=== PATIENT | male | born 1940 | race African-American/Black ===

== ENCOUNTER 2019-01-26 09:05 | Emergency (ER) | payer MEDICARE ==
[~2019-01-26] VITALS: Ht 185.4 cm; Wt 63.0 kg
--- OUTSIDE RECORDS SUMMARY | 2019-01-26 09:08 | XMS REPORT ---
[facility] Address Unknown Phone Unavailable Care Team Providers Care Tree Feller Name Role Phone DRU GU Unavailable Unavailable Payers Payer Name Policy Type Policy Number Effective Date Expiration Date Problems This patient has no known problems. Allergies, Adverse Reactions, Alerts Allergy Name Allergy Type Status Severity Reaction(s) Onset Date Inactive Date Treating Clinician Comments No Known Allergies DA Active U 2018-05-28 00:00:00 No Known Allergies DA Active U 2018-03-15 00:00:00 No Known Allergies DA Active U 2017-07-11 00:00:00 Medications This patient has no known medications. Results Test Description Test Time Test Comments Text Results Atomic Results Result Comments GLUBED 2018-06-03 09:28:00 GLUBED (test code=GLUBED) 246 MG/DL 70-110 Performed by certified fine chemicals operator at [facility] [id number] 08:05:00* Test Item Value Reference Range Comments GLUBED (test code=GLUBED) 129 MG/DL 70-110 Performed by certified fine chemicals operator at [facility] [id number] 20:40:00* Test Item Value Reference Range Comments GLUBED (test code=GLUBED) 148 MG/DL 70-110 Performed by certified fine chemicals operator at [facility] [id number] 13:30:00* Test Item Value Reference Range Comments GLUBED (test code=GLUBED) 187 MG/DL 70-110 Performed by certified fine chemicals operator at [facility] - DOP ART SGL LEVEL [id number] 12:53:00 Name: MARU MEDINA [facility] : 1940 Age/S: 77 / M [address] [place] [address] Unit #: [id number] Loc: [place] [address] Phys: Steve,Adoracion TRAINMASTER Acct: [id number] Dis Date: Status: ADM IN PHONE #: [phone] Exam Date: 06/02/2018 1145 FAX #: [phone] Reason: r/o PVD EXAMS: CPT CODE: [id number] DOP ART SGL LEVEL SUNNY [address]9559 PROCEDURE: BILATERAL LOWER EXTREMITY ARTERIAL DOPPLER INDICATION: 77-year-old male with peripheral vascular disease COMPARISON: None. TECHNIQUE: Duplex imaging of the bilateral lower extremity arteries was performed. FINDINGS: RIGHT: PRESSURES: BRACHIAL: 124 POSTERIOR TIBIAL: 152 DORSALIS PEDIS: 133 AKSHAT: 1.23 Triphasic waveforms in the common femoral, femoral, popliteal, posterior tibial and dorsalis pedis arteries. LEFT: PRESSURES: BRACHIAL: Not obtained due to left arm in sling POSTERIOR TIBIAL: 155 DORSALIS PEDIS: 132 AKSHAT: 1.25 Triphasic waveforms in the common femoral, femoral, popliteal, and posterior tibial arteries. Monophasic waveform in the dorsalis pedis artery. IMPRESSION: 1. Normal bilateral ABIs. 2. Monophasic waveform in the left dorsalis pedis artery suggestive of distal disease. SL: [id number] at 1253 Reported and signed by: Shagufta Talbert M.D. PAGE 1 Signed Report (CONTINUED) Name: MARU MEDINA [facility] : 1940 Age/S: 77 / M [address] [place] [address] Unit #: [id number] Loc: [place] [address] Phys: Steve,Adoracion TRAINMASTER Acct: [id number] Dis Date: Status: ADM IN PHONE #: [phone] Exam Date: 06/02/2018 1145 FAX #: [phone] Reason: r/o PVD EXAMS: CPT CODE: [id number] DOP ART SGL LEVEL SUNNY 29660 <Continued> CC: Noah Forman MD; Bakari Wilson NP Technologist: Kavita Harrison RDMS(BR)(AB) Trnmab Date/Time: 06/02/2018 (1251) [email or web address] Orig Print D/T: S: 06/02/2018 (1255) Probe: PAGE 2 Signed Report [id number] 09:59:00* Test Item Value Reference Range Comments GLUBED (test code=GLUBED) 155 MG/DL 70-110 Performed by certified fine chemicals operator at [facility] BASIC METABOLIC [id number] 07:44:00* Test Item Value Reference Range Comments SODIUM (test code=NA) 143 mEq/L 134-147 POTASSIUM (test code=K) 3.6 mEq/L 3.4-5.0 CHLORIDE (test code=CL) 112 mEq/L 100-108 CARBON DIOXIDE (test code=CO2) 24 mEq/L 21-33 ANION GAP (test code=GAP) 11 0-20 GLUCOSE (test code=GLU) 133 mg/dL 70-110 BLOOD UREA NITROGEN (test code=BUN) 18 mg/dL 7-18 GLOMERULAR FILTRATION RATE (test code=GFR) 59.5 70-80 Units of measure=ml/min/1.73 m2 CREATININE (test code=CREAT) 1.4 mg/dL 0.6-1.3 CALCIUM (test code=CA) 8.7 mg/dL 8.0-10.5 CBC W/AUTO [id number] 07:28:00* Test Item Value Reference Range Comments WHITE BLOOD CELL (test code=WBC) 9.29 x10 3/uL 4.5-11.0 RED BLOOD CELL (test code=RBC) 3.76 x10 6/uL 4.00-5.60 HEMOGLOBIN (test code=HGB) 11.1 g/dL 12.5-16.9 HEMATOCRIT (test code=HCT) 33.9 % 37.5-50.7 MEAN CELL VOLUME (test code=MCV) 90.2 fL 81.0-99.0 MEAN CELL HGB (test code=MCH) 29.5 pg 27.0-33.0 MEAN CELL HGB CONCETRATION (test code=MCHC) 32.7 g/dL 33.0-37.0 RED CELL DISTRIBUTION WIDTH CV (test code=RDW) 15.0 % 11.5-14.5 RED CELL DISTRIBUTION WIDTH SD (test code=RDW-SD) 49.4 fL 37.0-54.0 PLATELET COUNT (test code=PLT) 231 x10 3/uL 150-400 MEAN PLATELET VOLUME (test code=MPV) 11.6 fL 7.0-9.0 NEUTROPHIL % (test code=NT%) 54.3 % 56.0-77.0 IMMATURE GRANULOCYTE % (test code=IG%) 0.3 % 0.0-2.0 LYMPHOCYTE % (test code=LY%) 31.8 % 14.0-32.0 MONOCYTE % (test code=MO%) 9.7 % 4.8-9.0 EOSINOPHIL % (test code=EO%) 3.4 % 0.3-3.7 BASOPHIL % (test code=BA%) 0.5 % 0.0-2.0 NUCLEATED RBC % (test code=NRBC%) 0.0 % 0-0 NEUTROPHIL # (test code=NT#) 5.04 x10 3/uL 2.0-7.6 IMMATURE GRANULOCYTE # (test code=IG#) 0.03 x10 3/uL 0.00-0.03 LYMPHOCYTE # (test code=LY#) 2.95 x10 3/uL 1.0-3.8 MONOCYTE # (test code=MO#) 0.90 x10 3/uL 0.1-0.8 EOSINOPHIL # (test code=EO#) 0.32 x10 3/uL 0.0-0.2 BASOPHIL # (test code=BA#) 0.05 x10 3/uL 0.0-0.2 NUCLEATED RBC # (test code=NRBC#) 0.00 x10 3/uL 0.0-0.1 MANUAL DIFF REQUIRED (test code=MDIFF) NO [id number] 20:18:00* Test Item Value Reference Range Comments GLUBED (test code=GLUBED) 230 MG/DL 70-110 Performed by certified fine chemicals operator at [facility] [id number] 20:00:00* Test Item Value Reference Range Comments GLUBED (test code=GLUBED) 202 MG/DL 70-110 Performed by certified fine chemicals operator at [facility] [id number] 12:16:00* Test Item Value Reference Range Comments GLUBED (test code=GLUBED) 185 MG/DL 70-110 Performed by certified fine chemicals operator at [facility] BASIC METABOLIC [id number] 08:10:00* Test Item Value Reference Range Comments SODIUM (test code=NA) 144 mEq/L 134-147 POTASSIUM (test code=K) 3.4 mEq/L 3.4-5.0 CHLORIDE (test code=CL) 114 mEq/L 100-108 CARBON DIOXIDE (test code=CO2) 26 mEq/L 21-33 ANION GAP (test code=GAP) 7 0-20 GLUCOSE (test code=GLU) 102 mg/dL 70-110 BLOOD UREA NITROGEN (test code=BUN) 19 mg/dL 7-18 GLOMERULAR FILTRATION RATE (test code=GFR) 59.5 70-80 Units of measure=ml/min/1.73 m2 CREATININE (test code=CREAT) 1.4 mg/dL 0.6-1.3 CALCIUM (test code=CA) 8.1 mg/dL 8.0-10.5 CBC W/AUTO [id number] 07:40:00* Test Item Value Reference Range Comments WHITE BLOOD CELL (test code=WBC) 8.24 x10 3/uL 4.5-11.0 RED BLOOD CELL (test code=RBC) 3.32 x10 6/uL 4.00-5.60 HEMOGLOBIN (test code=HGB) 9.8 g/dL 12.5-16.9 HEMATOCRIT (test code=HCT) 30.9 % 37.5-50.7 MEAN CELL VOLUME (test code=MCV) 93.1 fL 81.0-99.0 MEAN CELL HGB (test code=MCH) 29.5 pg 27.0-33.0 MEAN CELL HGB CONCETRATION (test code=MCHC) 31.7 g/dL 33.0-37.0 RED CELL DISTRIBUTION WIDTH CV (test code=RDW) 15.3 % 11.5-14.5 RED CELL DISTRIBUTION WIDTH SD (test code=RDW-SD) 52.0 fL 37.0-54.0 PLATELET COUNT (test code=PLT) 193 x10 3/uL 150-400 MEAN PLATELET VOLUME (test code=MPV) 11.0 fL 7.0-9.0 NEUTROPHIL % (test code=NT%) 56.1 % 56.0-77.0 IMMATURE GRANULOCYTE % (test code=IG%) 0.2 % 0.0-2.0 LYMPHOCYTE % (test code=LY%) 28.6 % 14.0-32.0 MONOCYTE % (test code=MO%) 10.1 % 4.8-9.0 EOSINOPHIL % (test code=EO%) 4.5 % 0.3-3.7 BASOPHIL % (test code=BA%) 0.5 % 0.0-2.0 NUCLEATED RBC % (test code=NRBC%) 0.0 % 0-0 NEUTROPHIL # (test code=NT#) 4.62 x10 3/uL 2.0-7.6 IMMATURE GRANULOCYTE # (test code=IG#) 0.02 x10 3/uL 0.00-0.03 LYMPHOCYTE # (test code=LY#) 2.36 x10 3/uL 1.0-3.8 MONOCYTE # (test code=MO#) 0.83 x10 3/uL 0.1-0.8 EOSINOPHIL # (test code=EO#) 0.37 x10 3/uL 0.0-0.2 BASOPHIL # (test code=BA#) 0.04 x10 3/uL 0.0-0.2 NUCLEATED RBC # (test code=NRBC#) 0.00 x10 3/uL 0.0-0.1 MANUAL DIFF REQUIRED (test code=MDIFF) NO [id number] 07:30:00* Test Item Value Reference Range Comments GLUBED (test code=GLUBED) 93 MG/DL 70-110 Performed by certified fine chemicals operator at [facility] [id number] 21:53:00* Test Item Value Reference Range Comments GLUBED (test code=GLUBED) 224 MG/DL 70-110 Performed by certified fine chemicals operator at [facility] [id number] 15:52:00* Test Item Value Reference Range Comments GLUBED (test code=GLUBED) 173 MG/DL 70-110 Performed by certified fine chemicals operator at [facility] [id number] 12:05:00* Test Item Value Reference Range Comments GLUBED (test code=GLUBED) 229 MG/DL 70-110 Performed by certified fine chemicals operator at [facility] CBC W/AUTO [id number] 09:45:00* Test Item Value Reference Range Comments WHITE BLOOD CELL (test code=WBC) 8.36 x10 3/uL 4.5-11.0 RED BLOOD CELL (test code=RBC) 3.41 x10 6/uL 4.00-5.60 HEMOGLOBIN (test code=HGB) 10.1 g/dL 12.5-16.9 HEMATOCRIT (test code=HCT) 30.9 % 37.5-50.7 MEAN CELL VOLUME (test code=MCV) 90.6 fL 81.0-99.0 MEAN CELL HGB (test code=MCH) 29.6 pg 27.0-33.0 MEAN CELL HGB CONCETRATION (test code=MCHC) 32.7 g/dL 33.0-37.0 RED CELL DISTRIBUTION WIDTH CV (test code=RDW) 15.1 % 11.5-14.5 RED CELL DISTRIBUTION WIDTH SD (test code=RDW-SD) 50.8 fL 37.0-54.0 PLATELET COUNT (test code=PLT) 216 x10 3/uL 150-400 MEAN PLATELET VOLUME (test code=MPV) 11.4 fL 7.0-9.0 NEUTROPHIL % (test code=NT%) 54.6 % 56.0-77.0 IMMATURE GRANULOCYTE % (test code=IG%) 0.2 % 0.0-2.0 LYMPHOCYTE % (test code=LY%) 29.8 % 14.0-32.0 MONOCYTE % (test code=MO%) 9.9 % 4.8-9.0 EOSINOPHIL % (test code=EO%) 5.0 % 0.3-3.7 BASOPHIL % (test code=BA%) 0.5 % 0.0-2.0 NUCLEATED RBC % (test code=NRBC%) 0.0 % 0-0 NEUTROPHIL # (test code=NT#) 4.56 x10 3/uL 2.0-7.6 IMMATURE GRANULOCYTE # (test code=IG#) 0.02 x10 3/uL 0.00-0.03 LYMPHOCYTE # (test code=LY#) 2.49 x10 3/uL 1.0-3.8 MONOCYTE # (test code=MO#) 0.83 x10 3/uL 0.1-0.8 EOSINOPHIL # (test code=EO#) 0.42 x10 3/uL 0.0-0.2 BASOPHIL # (test code=BA#) 0.04 x10 3/uL 0.0-0.2 NUCLEATED RBC # (test code=NRBC#) 0.00 x10 3/uL 0.0-0.1 MANUAL DIFF REQUIRED (test code=MDIFF) NO BASIC METABOLIC [id number] 08:44:00* Test Item Value Reference Range Comments SODIUM (test code=NA) 146 mEq/L 134-147 POTASSIUM (test code=K) 3.6 mEq/L 3.4-5.0 CHLORIDE (test code=CL) 114 mEq/L 100-108 CARBON DIOXIDE (test code=CO2) 28 mEq/L 21-33 ANION GAP (test code=GAP) 8 0-20 GLUCOSE (test code=GLU) 105 mg/dL 70-110 BLOOD UREA NITROGEN (test code=BUN) 20 mg/dL 7-18 GLOMERULAR FILTRATION RATE (test code=GFR) 54.9 70-80 Units of measure=ml/min/1.73 m2 CREATININE (test code=CREAT) 1.5 mg/dL 0.6-1.3 CALCIUM (test code=CA) 8.1 mg/dL 8.0-10.5 [id number] 07:45:00* Test Item Value Reference Range Comments GLUBED (test code=GLUBED) 105 MG/DL 70-110 Performed by certified fine chemicals operator at [facility] [id number] 20:13:00* Test Item Value Reference Range Comments GLUBED (test code=GLUBED) 202 MG/DL 70-110 Performed by certified fine chemicals operator at [facility] [id number] 17:20:00* Test Item Value Reference Range Comments GLUBED (test code=GLUBED) 184 MG/DL 70-110 Performed by certified fine chemicals operator at [facility] [id number] 12:20:00* Test Item Value Reference Range Comments GLUBED (test code=GLUBED) 220 MG/DL 70-110 Performed by certified fine chemicals operator at [facility] [id number] 11:08:00* Test Item Value Reference Range Comments GLUBED (test code=GLUBED) 69 MG/DL 70-110 Performed by certified fine chemicals operator at [facility] BASIC METABOLIC [id number] 08:19:00* Test Item Value Reference Range Comments SODIUM (test code=NA) 146 mEq/L 134-147 POTASSIUM (test code=K) 3.6 mEq/L 3.4-5.0 CHLORIDE (test code=CL) 112 mEq/L 100-108 CARBON DIOXIDE (test code=CO2) 28 mEq/L 21-33 ANION GAP (test code=GAP) 10 0-20 GLUCOSE (test code=GLU) 60 mg/dL 70-110 BLOOD UREA NITROGEN (test code=BUN) 28 mg/dL 7-18 GLOMERULAR FILTRATION RATE (test code=GFR) 47.5 70-80 Units of measure=ml/min/1.73 m2 CREATININE (test code=CREAT) 1.7 mg/dL 0.6-1.3 CALCIUM (test code=CA) 8.0 mg/dL 8.0-10.5 CBC W/AUTO [id number] 07:48:00* Test Item Value Reference Range Comments WHITE BLOOD CELL (test code=WBC) 8.43 x10 3/uL 4.5-11.0 RED BLOOD CELL (test code=RBC) 3.44 x10 6/uL 4.00-5.60 HEMOGLOBIN (test code=HGB) 10.3 g/dL 12.5-16.9 HEMATOCRIT (test code=HCT) 31.7 % 37.5-50.7 MEAN CELL VOLUME (test code=MCV) 92.2 fL 81.0-99.0 MEAN CELL HGB (test code=MCH) 29.9 pg 27.0-33.0 MEAN CELL HGB CONCETRATION (test code=MCHC) 32.5 g/dL 33.0-37.0 RED CELL DISTRIBUTION WIDTH CV (test code=RDW) 15.2 % 11.5-14.5 RED CELL DISTRIBUTION WIDTH SD (test code=RDW-SD) 51.4 fL 37.0-54.0 PLATELET COUNT (test code=PLT) 206 x10 3/uL 150-400 MEAN PLATELET VOLUME (test code=MPV) 11.5 fL 7.0-9.0 NEUTROPHIL % (test code=NT%) 56.4 % 56.0-77.0 IMMATURE GRANULOCYTE % (test code=IG%) 0.1 % 0.0-2.0 LYMPHOCYTE % (test code=LY%) 29.1 % 14.0-32.0 MONOCYTE % (test code=MO%) 9.7 % 4.8-9.0 EOSINOPHIL % (test code=EO%) 4.2 % 0.3-3.7 BASOPHIL % (test code=BA%) 0.5 % 0.0-2.0 NUCLEATED RBC % (test code=NRBC%) 0.0 % 0-0 NEUTROPHIL # (test code=NT#) 4.76 x10 3/uL 2.0-7.6 IMMATURE GRANULOCYTE # (test code=IG#) 0.01 x10 3/uL 0.00-0.03 LYMPHOCYTE # (test code=LY#) 2.45 x10 3/uL 1.0-3.8 MONOCYTE # (test code=MO#) 0.82 x10 3/uL 0.1-0.8 EOSINOPHIL # (test code=EO#) 0.35 x10 3/uL 0.0-0.2 BASOPHIL # (test code=BA#) 0.04 x10 3/uL 0.0-0.2 NUCLEATED RBC # (test code=NRBC#) 0.00 x10 3/uL 0.0-0.1 MANUAL DIFF REQUIRED (test code=MDIFF) NO [id number] 06:30:00* Test Item Value Reference Range Comments GLUBED (test code=GLUBED) 162 MG/DL 70-110 Performed by certified fine chemicals operator at [facility] [id number] 16:58:00* Test Item Value Reference Range Comments GLUBED (test code=GLUBED) 212 MG/DL 70-110 Performed by certified fine chemicals operator at [facility] - US RETRO [id number] 16:38:00 Name: MARU MEDINA [facility] : 1940 Age/S: 77 / M [address] [address] Bl Unit #: [id number] Loc: [place] [address] Phys: Bibiana Clifford MD Acct: [id number] Dis Date: Status: ADM IN PHONE #: [phone] Exam Date: 05/29/2018 1620 FAX #: [phone] Reason: josee EXAMS: CPT CODE: [id number] [facility] [address]2579 Patient: MARU MEDINA. : 1940; Age: 77 years; Gender: Male. MR: [id number]. Ordering physician: Bibiana Clifford MD. PROCEDURE: RENAL ULTRASOUND. INDICATION: Acute kidney injury, elevated BUN/creatinine. COMPARISON: None. TECHNIQUE: Sonographic evaluation of the kidneys and urinary bladder was performed. FINDINGS: KIDNEYS: The right kidney measures 10.2 cm in length. Trace perinephric fluid suspected. Normal contour and parenchymal echogenicity. There is no hydronephrosis, nephrolithiasis, mass lesion or perinephric collection. The left kidney measures 11.1 cm in length. Simple cyst noted in the midportion measuring 1.9 x 1.5 x 1.5 cm. Cyst also noted in the inferior pole measuring 2.1 cm in greatest dimension. Trace perinephric fluid suspected. Normal parenchymal echogenicity. There is no hydronephrosis, nephrolithiasis, mass lesion or perinephric collection. BLADDER: Normal. Prostate measures 5.1 x 4.9 x 4.1 cm. Partially visualized inferior vena cava and abdominal aorta are unremarkable. Aortic bifurcation was not visualized secondary to overlying bowel gas. IMPRESSION: 1. Simple left renal cysts. 2. Trace perinephric fluid suspected bilaterally. SL: CY- H PAGE 1 Signed Report (CONTINUED) Name: MARU MEDINA [facility] : 1940 Age/S: 77 / M [address] [place] [address] Unit #: [id number] Loc: [place] [address] Phys: Bibiana Clifford MD Acct: [id number] Dis Date: Status: ADM IN PHONE #: [phone] Exam Date: 05/29/2018 1620 FAX #: [phone] Reason: josee EXAMS: CPT CODE: [id number] [facility] [address] < Continued> at 1638 Reported and signed by: Tanner Youngblood M.D. CC: Neeraj Early MD; Noah Forman MD; Bibiana Clifford MD Technologist: Jennifer Dominguez RDMS (AB) (OB) Trnscb Date/Time: 05/29/2018 (1638) [id number] Orig Print D/T: S: 05/29/2018 (1642) Probe: PAGE 2 Signed Report [id number] 12:47:00* Test Item Value Reference Range Comments GLUBED (test code=GLUBED) 168 MG/DL 70-110 Performed by certified fine chemicals operator at [facility] BASIC METABOLIC [id number] 08:25:00* Test Item Value Reference Range Comments SODIUM (test code=NA) 143 mEq/L 134-147 POTASSIUM (test code=K) 3.8 mEq/L 3.4-5.0 CHLORIDE (test code=CL) 109 mEq/L 100-108 CARBON DIOXIDE (test code=CO2) 30 mEq/L 21-33 ANION GAP (test code=GAP) 8 0-20 GLUCOSE (test code=GLU) 99 mg/dL 70-110 BLOOD UREA NITROGEN (test code=BUN) 28 mg/dL 7-18 GLOMERULAR FILTRATION RATE (test code=GFR) 44.5 70-80 Units of measure=ml/min/1.73 m2 CREATININE (test code=CREAT) 1.8 mg/dL 0.6-1.3 CALCIUM (test code=CA) 8.1 mg/dL 8.0-10.5 [id number] 08:18:00* Test Item Value Reference Range Comments GLUBED (test code=GLUBED) 74 MG/DL 70-110 Performed by certified fine chemicals operator at [facility] CBC W/AUTO [id number] 07:24:00* Test Item Value Reference Range Comments WHITE BLOOD CELL (test code=WBC) 7.84 x10 3/uL 4.5-11.0 RED BLOOD CELL (test code=RBC) 3.75 x10 6/uL 4.00-5.60 HEMOGLOBIN (test code=HGB) 10.9 g/dL 12.5-16.9 HEMATOCRIT (test code=HCT) 34.2 % 37.5-50.7 MEAN CELL VOLUME (test code=MCV) 91.2 fL 81.0-99.0 MEAN CELL HGB (test code=MCH) 29.1 pg 27.0-33.0 MEAN CELL HGB CONCETRATION (test code=MCHC) 31.9 g/dL 33.0-37.0 RED CELL DISTRIBUTION WIDTH CV (test code=RDW) 15.2 % 11.5-14.5 RED CELL DISTRIBUTION WIDTH SD (test code=RDW-SD) 50.5 fL 37.0-54.0 PLATELET COUNT (test code=PLT) 216 x10 3/uL 150-400 MEAN PLATELET VOLUME (test code=MPV) 11.1 fL 7.0-9.0 NEUTROPHIL % (test code=NT%) 57.0 % 56.0-77.0 IMMATURE GRANULOCYTE % (test code=IG%) 0.3 % 0.0-2.0 LYMPHOCYTE % (test code=LY%) 26.7 % 14.0-32.0 MONOCYTE % (test code=MO%) 10.6 % 4.8-9.0 EOSINOPHIL % (test code=EO%) 4.8 % 0.3-3.7 BASOPHIL % (test code=BA%) 0.6 % 0.0-2.0 NUCLEATED RBC % (test code=NRBC%) 0.0 % 0-0 NEUTROPHIL # (test code=NT#) 4.47 x10 3/uL 2.0-7.6 IMMATURE GRANULOCYTE # (test code=IG#) 0.02 x10 3/uL 0.00-0.03 LYMPHOCYTE # (test code=LY#) 2.09 x10 3/uL 1.0-3.8 MONOCYTE # (test code=MO#) 0.83 x10 3/uL 0.1-0.8 EOSINOPHIL # (test code=EO#) 0.38 x10 3/uL 0.0-0.2 BASOPHIL # (test code=BA#) 0.05 x10 3/uL 0.0-0.2 NUCLEATED RBC # (test code=NRBC#) 0.00 x10 3/uL 0.0-0.1 MANUAL DIFF REQUIRED (test code=MDIFF) NO [id number] 20:36:00* Test Item Value Reference Range Comments GLUBED (test code=GLUBED) 155 MG/DL 70-110 Performed by certified fine chemicals operator at [facility] [id number] 17:05:00* Test Item Value Reference Range Comments GLUBED (test code=GLUBED) 123 MG/DL 70-110 Performed by certified fine chemicals operator at [facility] COMPREHENSIVE METABOLIC [id number] 12:15:00* Test Item Value Reference Range Comments SODIUM (test code=NA) 141 mEq/L 134-147 POTASSIUM (test code=K) 4.4 mEq/L 3.4-5.0 CHLORIDE (test code=CL) 104 mEq/L 100-108 CARBON DIOXIDE (test code=CO2) 34 mEq/L 21-33 ANION GAP (test code=GAP) 7 0-20 GLUCOSE (test code=GLU) 158 mg/dL 70-110 BLOOD UREA NITROGEN (test code=BUN) 26 mg/dL 7-18 GLOMERULAR FILTRATION RATE (test code=GFR) 37.2 70-80 Units of measure=ml/min/1.73 m2 CREATININE (test code=CREAT) 2.1 mg/dL 0.6-1.3 TOTAL PROTEIN (test code=PROT) 7.3 g/dL 6.4-8.2 ALBUMIN (test code=ALB) 3.10 g/dL 3.4-5.0 CALCIUM (test code=CA) 8.3 mg/dL 8.0-10.5 BILIRUBIN TOTAL (test code=BILT) 0.20 mg/dL 0.0-1.0 SGOT/AST (test code=AST) 17 IUnit/L 15-37 SGPT/ALT (test code=ALT) 33 IUnit/L 15-65 ALKALINE PHOSPHATASE TOTAL (test code=ALKP) 69 IUnit/L 20-125 CPK-MB [id number] 12:15:00* Test Item Value Reference Range Comments CREATINE KINASE (CK) (test code=CK) 145 35-232 Result is in INTERNATIONAL UNITS/LITER CKMB (test code=CKMBT) 1.7 ng/mL 0-5.0 CUT OFF:>5 ng/mL is suggested as being consistent with AMI. RELATIVE % INDEX (test code=REL%) 1.1 % 0.0-2.5 *CK-MB INTERPRETATION* NORMAL: <5 ng/ml & <2.5% INDEX ABNORMAL: >5 ng/ml & >2.5% INDEX MENA ZONE: >5 ng/ml & <2.5% INDEX - SUGGEST CPK ISOENZYME BY ELECTROPHORESIS *PLEASE NOTE* A LOW TOTAL CK MAY CALCULATE TO A FALSELY ELEVATED INDEX. COMPREHENSIVE METABOLIC [id number] 12:08:00* Test Item Value Reference Range Comments SODIUM (test code=NA) 141 mEq/L 134-147 POTASSIUM (test code=K) 4.4 mEq/L 3.4-5.0 CHLORIDE (test code=CL) 104 mEq/L 100-108 CARBON DIOXIDE (test code=CO2) 34 mEq/L 21-33 ANION GAP (test code=GAP) 7 0-20 GLUCOSE (test code=GLU) 158 mg/dL 70-110 BLOOD UREA NITROGEN (test code=BUN) 26 mg/dL 7-18 GLOMERULAR FILTRATION RATE (test code=GFR) 37.2 70-80 Units of measure=ml/min/1.73 m2 CREATININE (test code=CREAT) 2.1 mg/dL 0.6-1.3 TOTAL PROTEIN (test code=PROT) g/dL 6.4-8.2 ALBUMIN (test code=ALB) 3.10 g/dL 3.4-5.0 CALCIUM (test code=CA) 8.3 mg/dL 8.0-10.5 BILIRUBIN TOTAL (test code=BILT) mg/dL 0.0-1.0 SGOT/AST (test code=AST) 17 IUnit/L 15-37 SGPT/ALT (test code=ALT) 33 IUnit/L 15-65 ALKALINE PHOSPHATASE TOTAL (test code=ALKP) IUnit/L 20-125 CPK-MB [id number] 12:08:00* Test Item Value Reference Range Comments CREATINE KINASE (CK) (test code=CK) 35-232 CKMB (test code=CKMBT) ng/mL 0-5.0 RELATIVE % INDEX (test code=REL%) % 0.0-2.5 PROTHROMBIN [id number] 12:02:00* Test Item Value Reference Range Comments PROTHROMBIN TIME PATIENT (test code=PTP) 14.7 SECONDS 9.3-12.9 INTERNATIONAL NORMAL RATIO (test code=INR) 1.3 0.8-1.2 TARGET INR BY INDICATION Indication INR1. Prophylaxis of venous thrombosis 2.0 - 3.0 (orthopedic surgery), Prophylaxis of venous thrombosis (other than high-risk surgery), Treatment of Deep Vein Thrombosis/Pulmonary Embolism, Prevention of systemic embolism - Tissue heart valves, Acute Myocardial Infarction (to prevent systemic embolism), Valvular heart disease, Atrial Fibrillation, Bileaflet mechanical valve in aortic position.2. Mechanical prosthetic valves (high risk), 2.5 - 3.5 Presence of Lupus Anticoagulant or Antiphospholipid Antibodies, Prevention of systemic embolism - Acute Myocardial Infarction (to prevent recurrent infarct). THROMBOPLASTIN TIME [id number] 12:02:00* Test Item Value Reference Range Comments THROMBOPLASTIN TIME PARTIAL (test code=PTT) 32.9 Seconds 25.0-39.5 Therapeutic Range: 61.8-83.8 Sec Effective 04/26/2013 CBC W/AUTO [id number] 11:58:00* Test Item Value Reference Range Comments WHITE BLOOD CELL (test code=WBC) 9.64 x10 3/uL 4.5-11.0 RED BLOOD CELL (test code=RBC) 4.07 x10 6/uL 4.00-5.60 HEMOGLOBIN (test code=HGB) 12.0 g/dL 12.5-16.9 HEMATOCRIT (test code=HCT) 37.1 % 37.5-50.7 MEAN CELL VOLUME (test code=MCV) 91.2 fL 81.0-99.0 MEAN CELL HGB (test code=MCH) 29.5 pg 27.0-33.0 MEAN CELL HGB CONCETRATION (test code=MCHC) 32.3 g/dL 33.0-37.0 RED CELL DISTRIBUTION WIDTH CV (test code=RDW) 14.9 % 11.5-14.5 RED CELL DISTRIBUTION WIDTH SD (test code=RDW-SD) 50.4 fL 37.0-54.0 PLATELET COUNT (test code=PLT) 238 x10 3/uL 150-400 MEAN PLATELET VOLUME (test code=MPV) 10.6 fL 7.0-9.0 NEUTROPHIL % (test code=NT%) 68.4 % 56.0-77.0 IMMATURE GRANULOCYTE % (test code=IG%) 0.3 % 0.0-2.0 LYMPHOCYTE % (test code=LY%) 19.3 % 14.0-32.0 MONOCYTE % (test code=MO%) 8.1 % 4.8-9.0 EOSINOPHIL % (test code=EO%) 3.5 % 0.3-3.7 BASOPHIL % (test code=BA%) 0.4 % 0.0-2.0 NUCLEATED RBC % (test code=NRBC%) 0.0 % 0-0 NEUTROPHIL # (test code=NT#) 6.59 x10 3/uL 2.0-7.6 IMMATURE GRANULOCYTE # (test code=IG#) 0.03 x10 3/uL 0.00-0.03 LYMPHOCYTE # (test code=LY#) 1.86 x10 3/uL 1.0-3.8 MONOCYTE # (test code=MO#) 0.78 x10 3/uL 0.1-0.8 EOSINOPHIL # (test code=EO#) 0.34 x10 3/uL 0.0-0.2 BASOPHIL # (test code=BA#) 0.04 x10 3/uL 0.0-0.2 NUCLEATED RBC # (test code=NRBC#) 0.00 x10 3/uL 0.0-0.1 MANUAL DIFF REQUIRED (test code=MDIFF) NO URINALYSIS [id number] 11:56:00* Test Item Value Reference Range Comments UA COLOR (test code=COLU) YELLOW YEL/STRAW UA APPEARANCE (test code=APPU) SL CLOUDY CLEAR UA GLUCOSE DIPSTICK (test code=DGLUU) NEGATIVE NEGATIVE UA BILIRUBIN DIPSTICK (test code=BILU) NEGATIVE NEGATIVE UA KETONE DIPSTICK (test code=KETU) NEGATIVE NEGATIVE UA SPECIFIC GRAVITY (test code=SGU) 1.006 1.005-1.030 UA BLOOD DIPSTICK (test code=MARY CARMEN) 1+ NEGATIVE UA PH DIPSTICK (test code=DORETHA) 5.0 5.0-7.0 UA PROTEIN DIPSTICK (test code=PROU) NEGATIVE NEGATIVE UA UROBILINIOGEN DIPSTICK (test code=URO) 0.2 mg/dL 0.2-1.0 UA NITRITE DIPSTICK (test code=MICK) NEGATIVE NEGATIVE UA LEUKOCYTE ESTERASE DIPSTICK (test code=LEUU) 2+ NEGATIVE UA WBC (test code=WBCU) 21-50 WBC/HPF 0-3 UA RBC (test code=RBCU) 4-10 RBC/HPF 0-3 UA BACTERIA (test code=BACU) 1+ /HPF NONE SEEN UA SQUAMOUS CELLS (test code=SQU) 0-5 /HPF NONE SEEN UA HYALINE CAST (test code=HYALU) 6-10 /LPF NONE SEEN UA MUCUS (test code=MUCU) TRACE /LPF NONE SEEN [id number] 11:41:00* Test Item Value Reference Range Comments GLUBED (test code=GLUBED) 153 MG/DL 70-110 Performed by certified fine chemicals operator at [facility] TROPONIN-I [id number] 11:38:00* Test Item Value Reference Range Comments TROPONIN-I RAPID (test code=TROPIRAP) 0.01 ng/mL 0.00-0.08 [facility] certified fine [facility] Global Task Force with joint leadership from the EuropeanSociety of Cardiology (ESC), the [place] [employer] Foundation (ACCF), the [place] [employer] Association(AHA) and the World Heart Federation (WHF) refined past criteria of myocardial infarction (MT) with a universal definition of myocardial infarction that supports the use of cTnI as a preferred biomarker for myocardial injury. The universal definition of MT, according to this taskforce, is defined as a typical rise and gradual fall ofcardiac biomarkers (preferably troponin) with at least onevalue above the 99th percentile of the upper reference limit (URL) together with evidence of myocardial ischemia with at least one of the following:* ischemic symptoms,* pathological Q waves on electrocardiogram (ECG),* ischemic ECG changes,* or imaging evidence of new loss of viable myocardium or new regional wall motion abnormality. An elevated troponin value alone is not sufficient todiagnose a myocardial infarction. Rather, the patient sclinical presentation (history, physical exam) and ECGshould be used in conjunction with troponin in thediagnostic evaluation of suspected myocardial infarction. Aserial sampling protocol is recommended to facilitate the identification of temporal changes in troponin levels characteristic of MT. - XR CHEST 1 [id number] 09:51:00 FAX: Maria Dolores Segundo DO [place]: St: PRE FAX: Noah Easley MD [phone] Name: MARU MEDINA [facility] : 1940 Age/S: 77/M [address] [place] [address] Unit #: [id number] Loc: MARIAN2 [place] [address] Phys: SegundoMaria Dolores Gely Acct: [id number] Dis Date: Status: PRE ER PHONE #: [phone] Exam Date: 05/28/2018950 FAX #: [phone] Reason: weak EXAMS: CPT CODE: [id number] XR CHEST 1 V 91256 1 VIEW CXR. PORTABLE EXAM 9:41 AM HISTORY: Weakness. COMPARISON: None. Pacemaker device appears well-positioned. The heart is at the upper limits of normal in size. Upper mediastinal contours normal. Lungs clear no pleural abnormality. Bones intact. IMPRESSION: No acute process evident. END OF IMPRESSION SL: [id number] at 0951 Reported and signed by: Cecil Lock M.D. CC: Maria Dolores Segundo DO; Noah Forman MD Technologist: Veronique Blanton, RT(R); Enid Hinton RT(R) Trnscrd Date/Time/By: 05/28/2018 (0951) : By: Gregory Orig Print D/T: S: 05/28/2018 (3654) PAGE 1 Signed Report Stress Test - Treadmill ONLY [place] [address] Patient Name : CARLOTA MEDINA MR #: [id number] : 1940 Age/Sex: 76/M Adm Physician : DRU GU MD Admit Date : Location : [place] Room/Bed : REPORT: Cardiology Report DATE OF Reece YU: February 16, 2017 LEXISCAN NUCLEAR STRESS TEST INDICATION: Ch est pain. DESCRIPTION OF PROCEDURE: After informed consent, the patient wa s brought to the stress lab. He was given 11 mCi of technetium 99 Myoview, a nd myocardial perfusion and SPECT images were obtained in the horizontal long and short axis and vertical long axis. Subsequently, patient was given 0.4 mg of Lexiscan over 10 seconds. The patient was given 32 mCi of technetium 99 Myoview, and myocardial perfusion and SPECT images were obtained in hori zontal long axis and short axis and vertical long axis. Gated images were al so obtained. Patient tolerated the procedure without any complications. REPORT: Baseline EKG shows sinus rhythm at 95 beats per minute, left anteri or fascicular block, interventricular conduction delay, T-wave inversions in V5 and V6. PARAMETERS: Resting heart rate is 69 beats per minute. Maximum heart rate is 95 beats per minute. Resting blood pressure is 129/81 mmHg. Next maximum blood pressure is 130/83 mmHg. REASON FOR TERMINATION: End point attained. INTERPRETATION 1. Negative chest pain. 2. Negative fo r arrhythmias. 3. Blood pressure response consistent with Lexiscan. 4. N o significant ST-T changes seen during Lexiscan infusion compared to baseline . 5. Analysis of SPECT reveals patchy radioisotope uptake in the inferoapic al wall both during stress and rest without any significant perfusion defects . CONCLUSION 1. No evidence of significant ischemia or infarction on this study. 2. Diffuse hypokinesis of the left ventricle is noted. 3. Overall ejection fraction is 35%. Job#: [id number] Signature Date Dictated By: SA ELIZABET GU MD Transcribed By: SMEDS on 03/05/17 <Electronically signed by DRU GU MD><<Signature on File>>03/09/17 6921 COPY TO:
[2019-01-26] MEDS ORDERED: SODIUM CHLORIDE 0.9% 1000ML 1,000 ML IV STA (09:11)
[2019-01-26 09:35] LABS: BASOPHILS # (AUTO) 0.1 (0.0-0.1); BASOPHILS % 0.7 % (0.0-1.0); EOSINOPHILS # (AUTO) 0.7 (0.0-0.4); EOSINOPHILS % 7.8 % (0.0-6.0); HEMATOCRIT 34.1 % (38.2-49.6); HEMOGLOBIN 11.3 g/dL (14.0-18.0); LYMPHOCYTES # (AUTO) 3.4 (1.0-3.2); LYMPHOCYTES % 40.5 % (18.0-39.1); MEAN CORPUSCULAR HEMOGLOBIN 29.7 pg (28-32); MEAN CORPUSCULAR HGB CONC 33.1 g/dL (31-35); MEAN CORPUSCULAR VOLUME 89.7 fL (81-99); MONOCYTES # (AUTO) 0.7 (0.2-0.8); MONOCYTES % 8.3 % (4.4-11.3); NEUTROPHILS # (AUTO) 3.6 (2.1-6.9); NEUTROPHILS % 42.5 % (38.7-80.0); PLATELET COUNT 215 x10e3/uL (140-360); RED CELL DISTRIBUTION WIDTH 14.3 % (11.7-14.4)
[2019-01-26 09:45] LABS: INR 1.26; PROTHROMBIN TIME 16.4 seconds (11.9-14.5)
[2019-01-26] MEDS ORDERED: LEVETIRACETAM 500MG/5ML VIAL 500 MG in SODIUM CHLORIDE 0.9% 100 ML 100 ML IV ONE (09:45)
[2019-01-26 09:52] LABS: ALANINE AMINOTRANSFERASE 49 IU/L (0-55); ALBUMIN 3.7 g/dL (3.5-5.0); ALBUMIN/GLOBULIN RATIO 1.2 (0.8-2.0); ALKALINE PHOSPHATASE 60 IU/L (40-150); ANION GAP 14.8 mmol/L (8-16); BLOOD UREA NITROGEN 16 mg/dL (7-26); BUN/CREATININE RATIO 12 (6-25); CALCIUM 9.2 mg/dL (8.4-10.2); CARBON DIOXIDE 26 mmol/L (22-29); CHLORIDE 101 mmol/L (98-107); CREATINE KINASE 113 IU/L (30-200); CREATININE, SERUM 1.29 mg/dL (0.72-1.25); EST GLOMERULAR FILTRATION RATE > 60 ML/MIN (60-); GLUCOSE 152 mg/dL (74-118); POTASSIUM 3.8 mmol/L (3.5-5.1); SODIUM 138 mmol/L (136-145)
[2019-01-26] MEDS ORDERED: PANTOPRAZOLE 40 MG 10ML VIAL IV ONE (10:00)
[2019-01-26] MEDS ORDERED: LEVETIRACETAM 500MG/5ML VIAL 1,000 MG in SODIUM CHLORIDE 0.9% 100 ML 100 ML IV ONE (10:30)
--- NOTE | 2019-01-26 11:37 | NUR ---
[facility] BEDSIDE TO TRANSFER PATIENT AT THIS TIME
== END 2019-01-26 11:56 | disposition other institution (70) ==
LOC: ER 09:05
DX: I60.9 Nontraumatic subarachnoid hemorrhage, unspecified (principal); I10 Essential (primary) hypertension; I50.9 Heart failure, unspecified; I25.10 Atherosclerotic heart disease of native coronary artery without angina pectoris; I25.2 Old myocardial infarction; Z95.810 Presence of automatic (implantable) cardiac defibrillator
CPT/HCPCS: 36415; 80053; 82550; 82553; 84484; 85025; 85610; 85730; 86850; 86900; 93005; 99284; C9113; J1953; J7030

== ENCOUNTER → 2019-01-26 | Outpatient (CLI) | payer MEDICARE ==
--- NOTE | 2019-01-26 09:03 | Diagnostic Imaging Report ---
Examination: CT head without contrast Clinical Indication: Unresponsive. Technique: Transaxial noncontrast images from the skull base through the vertex were obtained. Sagittal and coronal reformatted images were done. Dose modulation, iterative reconstruction, and/or weight based adjustment of the mA/kV was utilized to reduce the radiation dose to as low as reasonably achievable. Comparison: None. Findings: Scalp: No abnormalities. Bones: Intact. No fractures. No blastic or lytic lesions. Brain sulci: Mild volume loss for patient's age. Ventricles: No hydrocephalus. Extra-axial space: No abnormalities. Parenchyma: There are patchy areas of low-attenuation within subcortical and periventricular white matter, nonspecific, but could represent microvascular ischemic disease. There is a cortical-based encephalomalacia involving the right middle and inferior frontal gyri, right frontal operculum, left fusiform gyrus and left inferior temporal and occipital gyri. There is a 1.4 cm gyriform hyperdensity within the right frontal approach along and within the cortical based encephalomalacia and represents either hemorrhage or residual gyrus. Chronic vascular insult of the left caudate. No masses, or acute cortical based vascular insults. Suprasellar region: No abnormalities. Craniocervical junction: The foramen magnum is patent. No Chiari one malformation. Incidental findings: Atherosclerotic calcification of the bilateral cavernous and supraclinoid internal carotid and V4 segments of the right vertebral arteries. Impression: 1. A 1.4 cm gyriform hyperdensity within the right frontal opercular encephalomalacia, represents either hemorrhage or residual gyrus. 2. Chronic vascular insults of the right frontal, left temporal and left occipital lobes, as above. 3. Mild chronic microvascular ischemic change and volume loss. Dr. Soco Arellano discussed findings with Dr. Diane on 01/26/2019 at 9:06 AM. Signed by: Dr. Soco Arellano M.D. on 01/26/2019 9:06 AM
== END ==
LOC: NM 07:51
PROVIDERS: ATTEND Internal Medicine
DX: I50.22 Chronic systolic (congestive) heart failure (principal); I25.118 Atherosclerotic heart disease of native coronary artery with other forms of angina pectoris; R06.02 Shortness of breath
CPT/HCPCS: 36415; 70450; 82948

== ENCOUNTER 2019-04-27 16:05 | Emergency (ER) | payer MEDICARE ==
[~2019-04-27] VITALS: Ht 185.4 cm; Wt 63.0 kg
[2019-04-27 16:30] LABS: BASOPHILS % 0.6 % (0.0-1.0); EOSINOPHILS # (AUTO) 0.7 (0.0-0.4); HEMATOCRIT 39.1 % (38.2-49.6); HEMOGLOBIN 12.6 g/dL (14.0-18.0); LYMPHOCYTES # (AUTO) 2.2 (1.0-3.2); LYMPHOCYTES % 30.7 % (18.0-39.1); MEAN CORPUSCULAR HEMOGLOBIN 29.2 pg (28-32); MEAN CORPUSCULAR HGB CONC 32.2 g/dL (31-35); MEAN CORPUSCULAR VOLUME 90.7 fL (81-99); MONOCYTES # (AUTO) 0.6 (0.2-0.8); MONOCYTES % 7.8 % (4.4-11.3); NEUTROPHILS # (AUTO) 3.6 (2.1-6.9); NEUTROPHILS % 50.8 % (38.7-80.0); PLATELET COUNT 179 x10e3/uL (140-360); RED BLOOD COUNT 4.31 x10e6/uL (4.3-5.7); RED CELL DISTRIBUTION WIDTH 14.4 % (11.7-14.4)
[2019-04-27] MEDS ORDERED: DIATRIZOATE MEGL/DIATRIZOA SOD 30 ML BTL PO ONE (16:39)
[2019-04-27 16:40] LABS: BILIRUBIN,URINE NEGATIVE (NEGATIVE); CLARITY,URINE CLEAR (CLEAR); COLOR,URINE YELLOW (YELLOW); KETONES,URINE NEGATIVE (NEGATIVE); LEUKOCYTE ESTERASE ,URINE NEGATIVE (NEGATIVE); NITRITE,URINE NEGATIVE (NEGATIVE); PROTEIN,URINE DIPSTICK NEGATIVE (NEGATIVE); URINE UROBILINOGEN 1 mg/dL (0.2 - 1)
[2019-04-27 16:47] LABS: RBC,URINE 0-5 /HPF (0-5)
[2019-04-27 16:55] LABS: ALANINE AMINOTRANSFERASE 31 IU/L (0-55); ALBUMIN 3.7 g/dL (3.5-5.0); ALBUMIN/GLOBULIN RATIO 1.3 (0.8-2.0); ALKALINE PHOSPHATASE 72 IU/L (40-150); ANION GAP 13.1 mmol/L (8-16); BLOOD UREA NITROGEN 16 mg/dL (7-26); BUN/CREATININE RATIO 13 (6-25); CALCIUM 8.9 mg/dL (8.4-10.2); CARBON DIOXIDE 27 mmol/L (22-29); CHLORIDE 103 mmol/L (98-107); CREATININE, SERUM 1.24 mg/dL (0.72-1.25); EST GLOMERULAR FILTRATION RATE > 60 ML/MIN (60-); GLUCOSE 133 mg/dL (74-118); POTASSIUM 4.1 mmol/L (3.5-5.1); SODIUM 139 mmol/L (136-145)
[2019-04-27] MEDS ORDERED: IOPAMIDOL 370 MG/ML 200 ML INFUS..BTL INJ ONE (18:01)
[2019-04-27] MEDS ORDERED: SODIUM CHLORIDE 0.9% 50ML 50 ML ONE (18:01)
--- NOTE | 2019-04-27 18:16 | Diagnostic Imaging Report ---
EXAMINATION: CT of the abdomen and pelvis with contrast. TECHNIQUE: Helical CT images of the abdomen and pelvis were performed from the lung bases to the lesser trochanters after the intravenous administration of 100 cc of Omnipaque 300 and the oral administration of positive enteric contrast.. Coronal and sagittal reformatted images were obtained.Dose modulation, iterative reconstruction, and/or weight based adjustment of the mA/kV was utilized to reduce the radiation dose to as low as reasonably achievable. COMPARISON: None. CLINICAL HISTORY:Abdominal pain DISCUSSION: ABDOMEN/PELVIS: LOWER THORAX:Unremarkable. HEPATOBILIARY: No focal hepatic lesions. No intra-or extrahepatic biliary ductal dilation. The gallbladder is normal. SPLEEN: No splenomegaly. PANCREAS: No focal masses or ductal dilatation. ADRENALS: No adrenal nodules. KIDNEYS/URETERS: Simple left renal cysts. No obstruction. No calculi. PELVIC ORGANS/BLADDER: Bladder is mildly distended. Prostate is enlarged measuring 5.6 cm in transverse dimension. PERITONEUM/RETROPERITONEUM: No free air or fluid. LYMPH NODES: No intra-abdominal, retroperitoneal, pelvic or inguinal lymphadenopathy. VESSELS: Vascular calcifications. GI TRACT: No obstruction. BONES AND SOFT TISSUE: No bony destructive lesions. Small bowel containing left inguinal hernia. IMPRESSION: No acute CT finding. Small bowel containing left inguinal hernia. No obstruction. Signed by: Dr. Wes Schrader M.D. on 04/27/2019 6:13 PM
[2019-04-27 19:32] VITALS: BP 131/69
== END 2019-04-27 19:34 | disposition home or self-care (01) ==
LOC: ER 16:05
DX: R10.32 Left lower quadrant pain (principal); I10 Essential (primary) hypertension; I48.91 Unspecified atrial fibrillation; Z94.4 Liver transplant status; Z85.828 Personal history of other malignant neoplasm of skin; Z95.810 Presence of automatic (implantable) cardiac defibrillator
CPT/HCPCS: 36415; 74177; 80053; 81001; 85025; 99284; Q9967